=== PATIENT | female | born 1935 | race Caucasian/White ===

== ENCOUNTER 2017-03-27 08:23 | Day surgery (SDC) | payer OTHER ==
[2017-03-26 09:24] VITALS: BMI 26.5
[2017-03-27 08:45] LABS: BASOPHIL 0.7 % (0-2.0); EOSINOPHIL 3.4 % (0-4.5); MCH 28.3 pg (25.7-33.7); MCHC 32.9 g/dl (32.0-36.0); MEAN PLT VOLUME 7.1 fl (7.5-11.1); PLATELET COUNT 304 K/MM3 (134-434); RDW 15.4 % (11.6-15.6); WHITE BLOOD COUNT 5.5 K/mm3 (4.0-10.0)
[2017-03-27 09:05] LABS: INR 1.04 (0.82-1.09); PROTHROMBIN TIME (PATIENT) 11.4 SEC (9.98-11.88)
[2017-03-27 09:22] VITALS: TEMP 97.5
[2017-03-27 12:41] VITALS: BP 139/68; PULSE 62
--- NOTE | 2017-03-29 15:16 | PATH ---
Surgical Pathology Report Patient Name: PATEL IZQUIERDO [facility]. Rec. #: [id number] /Age/Gender: 1935 (Age: 81) / F Account: [id number] Location: RADIOLOGY Taken: 03/27/2017 Received: 03/27/2017 Reported: 03/29/2017 Physicians: Bryn Pate M.D. Specimen(s) Received LEFT NECK MASS Clinical History 81 yo female with history of total thyroidectomy secondary to benign disease now with left neck hypervascular mass Final Diagnosis MASS, LEFT NECK, us guided core biopsy: BLAND appearing thyroid tissue (see comment). 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 Ectopic thyroid tissue is not typically present in the lateral compartments (the finding of thyroid tissue in the lateral neck compartments raises concerns for low grade thyroid carcinoma). No lymphoid tissue is present in the biopsy material. Clinical, imaging correlations and follow up are suggested. Flow Cytometry attempted at [facility] on the concurrent specimen ([id number]) showed only limited viability sample with mixed rare polyclonal B-cells and T-cells. Electronically Signed Hawk Parra M.D. Gross Description Received in formalin labeled "left lymph node" are 4 davis, cylindrical soft tissue fragments ranging from 0.4-0.8 cm in length and averaging 0.1 cm in diameter. The specimen is submitted in toto in one cassette. There is additional tissue received in RPMI solution which is sent for flow cytometry. /03/27/2017 [place]03/27/2017
== END 2017-03-27 12:35 | disposition home or self-care (01) ==
LOC: JRADIR 08:23
PROVIDERS: ATTEND Specialist
PROC: BH4CZZZ Ultrasonography of Head and Neck (ICD-10-PCS; principal; 2017-03-27)
PROC: 07B23ZX Excision of Left Neck Lymphatic, Percutaneous Approach, Diagnostic (ICD-10-PCS; 2017-03-27)
DX: R22.1 Localized swelling, mass and lump, neck (principal)
CPT/HCPCS: 36415; 76942-TC; 85025; 85610; 87899; 88305-TC

== ENCOUNTER 2017-05-25 08:17 | Day surgery (SDC) | payer OTHER ==
[2017-05-24 17:37] VITALS: BMI 27.1
[2017-05-25] MEDS ORDERED: LIDOCAINE 1%/EPI 1:100000 (20 ML MULTI DOSE VIAL) ONE (08:32)
--- NOTE | 2017-05-25 09:04 | HP ---
History & Physical Update - History History: No Change - Physical Physical: No Change - Assessment Assessment: No Change - Plan Plan: No Change
[2017-05-25] MEDS ORDERED: LIDOCAINE 1%/EPI 1:100000 (50 ML MULTI DOSE VIAL) INF ONE ×2 (10:15)
[2017-05-25] MEDS ORDERED: PROMETHAZINE HCL 25 MG/1 ML VIAL IVPUSH PRN (10:57)
[2017-05-25] MEDS ORDERED: ONDANSETRON 4 MG/2 ML VIAL IVPUSH PRN (10:57)
--- NOTE | 2017-05-25 10:59 | OP ---
Operative Note - Note: Operative Date: 05/25/17 Pre-Operative Diagnosis: Ectopic thyroid , left submandibular nodular mass. Operation: Removal of ectopic thyroid , left nodular submandibular mass. Findings: Two cystic nodules in left submandibular triangle , to the left of the body of the hyoid bone Post-Operative Diagnosis: Other (Ectopic thyroid , ? thyroglossal cyst , left submandibular mass.) Surgeon: Alysa Maria Anesthesiologist/GROUP LEADER: Tahir Raman Anesthesia: General Specimens Removed: Ectopic thyroid nodules. Estimated Blood Loss (mls): 10 Operative Report Dictated: Yes
[2017-05-25] MEDS ORDERED: LACTATED RINGERS SOLUTION 1,000 ML IV SCH (11:00)
[2017-05-25 12:42] VITALS: TEMP 97.4
[2017-05-25 13:35] VITALS: BP 139/71; PULSE 73
--- NOTE | 2017-05-26 06:36 | OP ---
DATE OF OPERATION: PREOPERATIVE DIAGNOSIS: Thyroid mass in the left upper neck, left submandibular triangle, ? ectopic thyroid status post total thyroidectomy in 2015 for multinodular goiter. POSTOPERATIVE DIAGNOSIS: Ectopic thyroid tissue. OPERATIVE PROCEDURE: Excision of ectopic thyroid tissue, left nodular submandibular mass. SURGEON: Alysa Keating MD ANESTHESIA: General anesthesia. OPERATIVE DESCRIPTION: This 81-year-old woman who is status post total thyroidectomy for multinodular goiter in 2015 presented 3 months ago with palpable mass in the left upper neck in the digastric triangle on the medial aspect. The patient had a FN biopsy that showed thyroid tissue. Imaging suggested a mass in the left digastric triangle. The patient was brought in for excision of the mass. Consent was obtained. Risks, benefits, and complications were discussed with the patient. The patient was given general anesthesia. Positioned the neck in extension and in a 33-degree angle. The neck was painted and draped. Time-out was called. The patient was given a gram of Ancef. A curvilinear incision was made in the anterolateral aspect of the left side of the neck about 3 fingerbreadths below the margin of the mandible. This was deepened through the skin, subcutaneous tissue, platysma, and the deep cervical fascia. The mass was then identified to the left of the midline. There was a large 4-cm mass, which was multinodular. It was carefully from the rest of the tissue, and immediately it was quite adherent to the hyoid bone, so it was carefully divided with clamps. The mass was then completely excised intact. All bleeding vessels were ligated with 3-0 silk sutures. The wound was irrigated. The specimen was sent to pathology. Frozen section was deferred. The defect was then approximated with buried interrupted 3-0 Vicryl sutures. Platysma also approximated with buried interrupted 3-0 Vicryl sutures. The skin was approximated with continuous 4-0 sutures in a running subcuticular fashion. The hypogastric nerve was protected away from the angle of the digastric muscle. The lingual nerve was also not in the field. The margin of the mandibular nerve was also not in the field. These were all protected. The patient tolerated the procedure well, was extubated, and sent to the recovery room in satisfactory and stable condition. AMANDA KEATING M.D. [id number]
--- NOTE | 2017-05-28 17:16 | PATH ---
Surgical Pathology Report Patient Name: PATEL IZQUIERDO [facility]. Rec. #: [id number] /Age/Gender: 1935 (Age: 81) / F Account: [id number] Location: [facility] SURGICAL Taken: 05/25/2017 Received: 05/25/2017 Reported: 05/28/2017 Physicians: Radha Maria M.D. Specimen(s) Received LEFT SUBMANDIBULAR MASS Clinical History Per Dr. Maria patient has a prior history of total thyroidectomy diagnosed as benign multinodular goiter. Left submandibular mass extending down toward the hyoid bone has arisen in the past year, and a needle core biopsy showed benign thyroid tissue. Final Diagnosis SUBMANDIBULAR MASS, LEFT, EXCISION: THYROID TISSUE WITH NODULAR HYPERPLASIA, CYSTIC AND DEGENERATIVE CHANGES. NO SALIVARY GLAND OR LYMPHOID TISSUE IDENTIFIED. 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 Suggest clinical/radiologic correlation. Prior materials are noted. Electronically Signed Demetria Wheat M.D. Gross Description Received fresh labeled "left submandibular mass" is a 2.5 x 2.5 x 1.4 cm portion of tissue with a smooth surface. The margin is inked. Cut surface reveals a mottled davis and red interior. After discussing this case with Dr. Maria, no frozen section is performed. The tissue is entirely submitted in 5 cassettes. [facility]/05/25/2017 [facility]/05/25/2017
== END 2017-05-25 14:00 | disposition home or self-care (01) ==
LOC: JASU-SURG 08:17
PROVIDERS: ATTEND Specialist
PROC: 0JB50ZZ Excision of Left Neck Subcutaneous Tissue and Fascia, Open Approach (ICD-10-PCS; principal; 2017-05-25 09:30)
DX: D11.7 Benign neoplasm of other major salivary glands (principal)
CPT/HCPCS: 88307-TC; 94760